=== PATIENT | female | born 2000 | race African-American/Black ===

== ENCOUNTER 2022-07-14 19:02 | Emergency (ER) | payer OTHER, SELFPAY ==
[2022-07-14 19:34] VITALS: BP 109/75; PULSE 95; RESP 16; TEMP 37.7; O2SAT 98; BMI 18.9
[2022-07-14 20:45] LABS: Strep A DNA Probe* NOT DETECTED (Not Detectd)
--- NOTE | 2022-07-14 20:49 | CRLHL7_ITS ---
For Patients: As a result of the Century Cures Act, medical imaging exams and procedure reports are released immediately into your electronic medical record. You may view this report before your referring provider. If you have questions, please contact your health care provider. INDICATION: Dizziness, headache.. TECHNIQUE: CT head without contrast. COMPARISON: None. FINDINGS: CSF spaces: Within normal limits for age. Incidentally noted cavum septum vergae. Brain parenchyma and extra-axial spaces: The ivy-white differentiation is normal. No sign of mass, hemorrhage, or midline shift. No extra-axial fluid collection. Skull base and calvarium: The visualized paranasal sinuses and mastoid air cells demonstrate no acute or significant findings. The visualized orbits are grossly unremarkable. No skull fractures. IMPRESSION: Unremarkable noncontrast head CT. Please note that all CT scans at this facility use dose modulation, iterative reconstruction, and/or weight-based dosing when appropriate to reduce radiation dose to as low as reasonably achievable. Dictated by Seng Carmona MD @ 07/14/2022 9:48:30 PM (Electronically Signed)
--- NOTE | 2022-07-14 20:50 | ED.GENADULT ---
HPI - General Adult General Time Seen by Provider: 20:50 Date Seen: 07/14/22 Chief complaint: Ear/Nose/Throat Problem Stated complaint: Dizziness, Balance issues Time Seen by Provider: 07/14/22 20:42 Source: patient, family and RN notes reviewed Mode of arrival: ambulatory Limitations: no limitations History of Present Illness HPI narrative: 22-year-old female who comes in today with dizziness, sore throat, headache, ear pain. Sore throat headache as well as ear pain and been going on for about 5 days, her dizziness started yesterday. Dizziness is room spinning, occurs mostly with movement although occasionally at rest. No accompanying nausea vomiting, no vision changes. She has a right occipital headache along with this. She has not taken anything for symptoms. Feels like the right ear is plugged. No numbness or tingling the arms or legs, no other neurologic symptoms. Related Data Previous Rx's Medication Instructions Recorded meclizine 25 mg tablet 25 mg PO QID PRN dizziness #20 tabs 07/14/22 Review of Systems Status of ROS: Reports: 10 or more systems reviewed and unremarkable except as noted in History and below Exam Narrative: Exam Narrative: General: Well-developed and well-nourished, no acute distress Head: Atraumatic and normocephalic Eyes: Pupils are equal reactive, extraocular motions intact, conjunctiva clear ENT: External nose and ears are normal, posterior pharynx without erythema or exudate, right tympanic membrane is retracted small amount of cerumen Neck: No midline cervical tenderness, full spontaneous range of motion the neck, trachea midline, no adenopathy Heart: Regular rate and rhythm no murmurs or thrills Lungs: Clear to auscultation bilaterally without wheezes or crackles Abdomen: Soft, nontender, nondistended with active bowel sounds Musculoskeletal: No tenderness, deformity, or edema Neurologic: Awake, alert, and oriented x3, no gross focal neurologic deficits, cranial nerves intact as tested Psych: Mood and affect are appropriate Skin: No rashes Const: Vital Signs, click to edit/add: Vital Signs - 24 hr 07/14/22 19:34 Temperature 99.8 F H Pulse Rate [Pulse Oximeter] 95 Respiratory Rate 16 Blood Pressure [Ri ght Upper Arm] 109/75 Pulse Oximetry 98 Oxygen Delivery Me thod Room Air Course Course Hospital Course: Patient seen and examined, prior records are reviewed. Patient presents with head pain, sore throat, right ear pain, and dizziness which sounds like vertigo. COVID influenza swabs are ordered. On exam, no focal neurologic deficits. Dizziness is elicited with turning the head to the right but not with eye movements. No neck pain or meningeal signs. Head CT is ordered due to right occipital headache and vertigo but likely this represents labyrinthitis or viral process. Meclizine ordered for symptom management. Reevaluation(s) Reevaluation #1: COVID, influenza, and strep test are all negative. CT scan of the head is negative for acute findings, radiology interpretation is pending. Patient will be discharged with meclizine to help with her dizziness, also be started on prednisone possible labyrinthitis. Time: 21:35 Time: 21:49 Vital Signs Vital signs: Initial Vital Signs Temperature 99.8 F H 07/14/22 19:34 Temperature Source Temporal Artery Scan 07/14/22 19:34 Pulse Rate 95 07/14/22 19:34 Pulse Rhythm 07/14/22 19:34 Respiratory Rate 16 07/14/22 19:34 Blood Pressure 109/75 07/14/22 19:34 Blood Pressure Mean 86 07/14/22 19:34 Pulse Oximetry 98 07/14/22 19:34 Oxygen Delivery Method 07/14/22 19:34 Vital Signs Temperature 99.8 F H 07/14/22 19:34 Pulse Rate 95 07/14/22 19:34 Respiratory Rate 16 07/14/22 19:34 Blood Pressure 109/75 07/14/22 19:34 Pulse Oximetry 98 07/14/22 19:34 Oxygen Delivery Method 07/14/22 19:34 Temperature 99.8 F H 07/14/22 19:34 Pulse Rate 95 07/14/22 19:34 Respiratory Rate 16 07/14/22 19:34 Blood Pressure 109/75 07/14/22 19:34 Pulse Oximetry 98 07/14/22 19:34 Oxygen Delivery Method 07/14/22 19:34 Medical Decision Making Medical Records Medical records reviewed: Yes I reviewed the patient's medical records Lab Data Lab results reviewed: Yes I reviewed the patient's lab results Labs: Lab Results 07/14/22 07/14/22 Range/Units 19:18 19:18 SARS-CoV-2 (PCR) Negative SARS-CoV-2 (Negative) Influenza Type A (PCR) Negative PCR FLU A (Negative) Influenza Type B (PCR) Negative PCR FLU B (Negative) Group A Strep DNA NOT DETECTED (Not Detectd) Imaging Data CT scan - head: Attestation: I have reviewed the pertinent imaging results. My impression: Negative head CT Radiologist's impression: IMPRESSION: Unremarkable noncontrast head CT. Discharge Plan Discharge Clinical Impression: Acute labyrinthitis Patient Disposition: Home, Self-Care Condition: Stable Instructions: Labyrinthitis (ED) Additional Instructions: Take Tylenol and ibuprofen as needed for head pain. Take meclizine as needed for dizziness. Take steroid as prescribed. Follow-up with primary care in 5-7 days. Activity Level: No Restrictions and Activity as Tolerated Prescriptions: New meclizine 25 mg tablet 25 mg PO QID PRN (Reason: dizziness) Qty: 20 0RF Stand Alone Forms: [email or web address] Info Instructions
[2022-07-14] MEDS: MECLIZINE HCL 25 MG TABLET PO (20:57)
[2022-07-14 20:58] LABS: PCR FLU A Negative PCR FLU A (Negative); PCR FLU B Negative PCR FLU B (Negative)
[2022-07-14 20:59] LABS: SARS PCR* Negative SARS-CoV-2 (Negative)
== END 2022-07-14 22:18 | disposition home or self-care (01) ==
PROVIDERS: Emergency Provider Family Medicine
DX: H83.09 Labyrinthitis, unspecified ear (principal)
CPT/HCPCS: 70450; 87631; 87651; 99284; A9270

== ENCOUNTER 2023-05-04 07:18 | Emergency (ER) | payer OTHER, SELFPAY ==
[2023-05-04 07:26] VITALS: BP 96/52; PULSE 61; RESP 16; TEMP 35.9; O2SAT 100; BMI 18.9
--- NOTE | 2023-05-04 08:10 | ED.SKABFB ---
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 She has had no fevers no chills no night sweats. No significant swelling of the ear. No neurologic symptoms she states the pain is moderate and localized to the posterior aspect of the piercing. Related Data Home Medications Medication Instructions Recorded Confirmed No Known Home Medications 05/04/23 05/04/23 Allergies Allergy/AdvReac Type Severity Reaction Status Date / Time No Known Drug Allergies Allergy Verified 05/04/23 07:25 Review of Systems Status of ROS: Reports: 10 or more systems reviewed and unremarkable except as noted in History and below [facility] Social History Smoking Status: Never smoker Exam Narrative: Exam Narrative: EXAM GENERAL: Patient appears comfortable and well. EYES: No scleral icterus. ENT: Tympanic membranes and oropharynx normal. External ear on the left shows mild induration of the piercing on the superior aspect. No other significant findings minimal drainage. THYROID: no thyroid nodules or thyromegaly. LYMPH: No supraclavicular or cervical lymphadenopathy. SKIN: Visible skin seen during exam normal or with benign process only. EXT: No dependent lower extremity pedal edema. HEART: Regular rate and rhythm with no murmurs, rubs, or gallops. LUNGS: Clear to auscultation bilaterally with no crackles or wheezes. ABD: Soft, non tender, non distended. PSYCH: Good eye contact, speech is not pressured. Const: Vital Signs, click to edit/add: Vital Signs - 24 hr 05/04/23 07:26 Temperature 96.7 F L Pulse Rate [Pulse Oximeter] 61 Respiratory Rate 16 Blood Pressure [Le ft Upper Arm] 96/52 L Pulse Oximetry 100 Oxygen Delivery Me thod Room Air Course Course ED Course: Patient seen and examined. Vital Signs Vital signs: Initial Vital Signs Temperature 96.7 F L 05/04/23 07:26 Temperature Source Temporal Artery Scan 05/04/23 07:26 Pulse Rate 61 05/04/23 07:26 Pulse Rhythm Regular 05/04/23 07:26 Pulse Strength 3+ Normal 05/04/23 07:26 Respiratory Rate 16 05/04/23 07:26 Blood Pressure 96/52 L 05/04/23 07:26 Blood Pressure Mean 66 L 05/04/23 07:26 Blood Pressure Position Sitting 05/04/23 07:26 Pulse Oximetry 100 05/04/23 07:26 Oxygen Delivery Method Room Air 05/04/23 07:26 Vital Signs Temperature 96.7 F L 05/04/23 07:26 Pulse Rate 61 05/04/23 07:26 Respiratory Rate 16 05/04/23 07:26 Blood Pressure 96/52 L 05/04/23 07:26 Pulse Oximetry 100 05/04/23 07:26 Oxygen Delivery Method Room Air 05/04/23 07:26 Temperature 96.7 F L 05/04/23 07:26 Pulse Rate 61 05/04/23 07:26 Respiratory Rate 16 05/04/23 07:26 Blood Pressure 96/52 L 05/04/23 07:26 Pulse Oximetry 100 05/04/23 07:26 Oxygen Delivery Method Room Air 05/04/23 07:26 MDM - Skin/Abscess/Foreign Bdy MDM Narrative Medical decision making narrative: Patient is a 22-year-old woman who presents with mild infection of a upper ear piercing. She has no signs of sepsis. I was able to turn the earring without any difficulty and only minimal discharge. At this time I do not think we need to take the hearing up a do think we need to treated with some antibiotics. Her tetanus shot is up-to-date. She will continue symptomatic wound care. I did place her on Keflex for the next week. She will follow-up on a p.r.n. basis. Discharge Plan Discharge Clinical Impression: Abscess of skin or subcutaneous tissue Patient Disposition: Home, Self-Care Condition: Stable Instructions: Abscess (ED) Additional Instructions: Turn the piercing 4 times per day Continue current topical treatment. Keflex as directed Follow-up as discussed. Activity Level: No Restrictions Discharge Diet: Regular Prescriptions: No Action No Known Home Medications Follow Up/Referrals: Provider,Not a Local [Primary Care Provider] - Stand Alone Forms: [employer] Info Instructions
== END 2023-05-04 08:26 | disposition home or self-care (01) ==
LOC: ED 08:23
PROVIDERS: Emergency Provider Internal Medicine
DX: T81.41XA Infection following a procedure, superficial incisional surgical site, initial encounter (principal)
CPT/HCPCS: 99283

== ENCOUNTER 2023-06-26 10:50 | Emergency (ER) | payer MEDICAID, SELFPAY ==
[2023-06-26 10:56] VITALS: BP 106/72; PULSE 75; RESP 16; TEMP 37.1; O2SAT 100; BMI 18.9
--- NOTE | 2023-06-26 13:29 | ED.GENADULT ---
HPI - General Adult General Chief complaint: Arrhythmia/Palpitations Stated complaint: Tightness in chest Time Seen by Provider: 06/26/23 12:47 History of Present Illness HPI narrative: Tightness in chest and feels like heart beats really fast out of no where for like 10 minutes and then comes back . Has been ongoing since . Feels some nausea with it too 23-year-old young woman presenting to the emergency department with concern of rapid heart beats. Might last for about 10 minutes and then resolve spontaneously and then occur later. Has been occurring on and off at rest over the last 4 days. Does have some associated nausea. At this time does have a sensation of pressure but not feeling does heartbeats. Sounds like father has a history of pacemaker. Ravindra reports a history of anemia of unspecified etiology. She does not describe peripheral sensory changes or cramping. Maybe some subtle shortness of breath. No cough or cold symptoms. No rashes. No noted exercise intolerance although does not really exercise. On affected by position changes. Related Data Home Medications Medication Instructions Recorded Confirmed No Known Home Medications 05/04/23 05/04/23 Allergies Allergy/AdvReac Type Severity Reaction Status Date / Time No Known Drug Allergies Allergy Verified 05/04/23 07:25 Review of Systems Status of ROS: Reports: 6 or more systems reviewed and unremarkable except as noted in History and below PFSH [facility] Social History Smoking Status: Never smoker Do you use any of these nicotine containing products: None Second hand tobacco smoke exposure: No How often do you have a drink containing alcohol: never How often do you have six or more drinks on one occasion: Never AUDIT-C Alcohol total score: 0 Non-prescribed substance use: denies use service: No Exam Narrative: Exam Narrative: Slim. Calm/NAD. Well nourished. Fully alert. Easily conversant. Carefully casually groomed. Breathing easily. Lungs are clear. Neck is supple without supraclavicular crepitus. Oropharynx is moist. No pain to palpation over the upper chest. Heart in regular rate and rhythm without murmur rub or gallop. Extremities are well perfused without edema. Moving all extremities without difficulty. Cranial nerves 2-12 intact. Const: Vital Signs, click to edit/add: Vital Signs - 24 hr 06/26/23 15:05 Pulse Rate [Left P ulse Oximeter] 75 Respiratory Rate 18 Blood Pressure [Le ft Upper Arm] 115/56 L Pulse Oximetry 99 Oxygen Delivery Me thod Room Air Documenting provider has reviewed patient's vital signs: yes Course Vital Signs Vital signs: Initial Vital Signs Temperature 98.7 F 06/26/23 10:56 Temperature Source Temporal Artery Scan 06/26/23 10:56 Pulse Rate 75 06/26/23 10:56 Pulse Rhythm Regular 06/26/23 10:56 Pulse Strength 3+ Normal 06/26/23 10:56 Respiratory Rate 16 06/26/23 10:56 Blood Pressure 106/72 06/26/23 10:56 Blood Pressure Mean 83 06/26/23 10:56 Blood Pressure Position Sitting 06/26/23 10:56 Pulse Oximetry 100 06/26/23 10:56 Oxygen Delivery Method Room Air 06/26/23 10:56 Vital Signs Temperature 98.7 F 06/26/23 10:56 Pulse Rate 75 06/26/23 10:56 Respiratory Rate 16 06/26/23 10:56 Blood Pressure 106/72 06/26/23 10:56 Pulse Oximetry 100 06/26/23 10:56 Oxygen Delivery Method Room Air 06/26/23 10:56 Temperature 98.7 F 06/26/23 10:56 Pulse Rate 75 06/26/23 15:05 Respiratory Rate 18 06/26/23 15:05 Blood Pressure 115/56 L 06/26/23 15:05 Pulse Oximetry 99 06/26/23 15:05 Oxygen Delivery Method Room Air 06/26/23 15:05 Medical Decision Making MDM Narrative Medical decision making narrative: Seems to be describing some potential arrhythmia. Will need to be monitored on cardiac cath technologist here in the ER. Would also evaluate for evidence of pulmonary embolus. Could be exacerbations of anxiety. Unlikely infectious etiology or pneumonia. Possible but doubtful aneurysm. History of anemia could be predisposing to tachycardia. This does not however appear to be a persistent tachycardia. Unlikely ischemic injury to heart on less prolonged and marked tachycardia. Chest x-ray for assessment more of cardiac silhouette than looking for pneumonia or pneumothorax. Does not appear to be pleuritic. Possible pericarditis contributing. EKG reviewed by me in normal sinus as below. Chemistries checked and TSH. Not particularly anemic. D-dimer normal. ProBNP below detectable. Troponin normal. No laboratory or EKG evidence of pericarditis. Chest x-ray reviewed by me with normal cardiac silhouette. No pneumothorax. No infiltrate. Monitored on cardiac cath technologist without identifiable arrhythmia. 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 Will place a Holter monitor for further analysis. See patient discharge plan Lab Data Lab results reviewed: Yes I reviewed the patient's lab results Labs: Lab Results 06/26/23 Range/Units 13:55 WBC 7.83 (4.50-11.00) K/uL RBC 3.94 L (4.00-5.20) m/uL Hgb 11.6 L (12.0-16.0) gm/dL Hct 36.5 (33.0-51.0) % MCV 93 (80-100) fL MCH 29 (26-34) pg MCHC 32 (32-36) gm/dL RDW Coeff of Keith 13.3 (11.5-15.5) % Plt Count 219 (140-440) K/uL Neut % (Auto) 59.0 (42.0-72.0) % Lymph % (Auto) 36.7 (20-44) % [place] % (Auto) 3.6 (0.0-11.0) % Eos % (Auto) 0.4 (0.0-7.0) % Baso % (Auto) 0.3 (0.0-3.0) % Neut # (Auto) 4.63 (1.7-7.0) K/uL Lymph # (Auto) 2.87 (0.90-2.90) K/uL [place] # (Auto) 0.30 (0.00-0.90) K/UL Eos # (Auto) 0.03 (0.00-0.50) K/uL Baso # (Auto) 0.02 (0.00-0.30) K/uL Abs Immat Gran (auto) 0.00 (0.00-0.30) K/uL Imm/Tot Granulo (auto) 0.0 % D-Dimer Quant (PE/DVT) 0.27 (0.00-0.50) ug/ml Sodium 141 (135-149) mmol/L Potassium 3.7 (3.6-5.1) mmol/L Chloride 105 (96-114) mmol/L Carbon Dioxide 24 (20-32) mmol/L Anion Gap 12 (7-15) mEq/L BUN 13 (5-24) mg/dL Creatinine 0.6 (0.5-1.5) mg/dL Estimated Creat Clear 116.83 Estimated GFR 131 ml/min Glucose 98 (60-115) mg/dL Calcium 9.2 (8.4-10.6) mg/dL Magnesium 2.6 (1.5-2.6) mg/dL Troponin I < 0.01 L (0.01-0.04) ng/mL NT-Pro-B Natriuret Pep < 20 pg/mL TSH 0.805 (0.270-4.20) uIU/mL ECG Data Attestation: I personally reviewed and interpreted this ECG as follows: (Normal sinus rhythm rate of 81. No delta wave.) Discharge Plan Discharge Clinical Impression: Palpitations Patient Disposition: Home w/ Parent or Adult Condition: Improved Additional Instructions: It sounds as though you are experiencing palpitations of unclear etiology. Please return this heart monitoring as indicated and would follow up for results in 1-2 weeks with your primary care provider in [place]. Your thyroid test is pending at this time; I will call you if it is abnormal. Prescriptions: No Action No Known Home Medications Follow Up/Referrals: Provider,Not a Local [Primary Care Provider] - Stand Alone Forms: [employer] Info Instructions
[2023-06-26 14:03] LABS: Basophils Absolute Auto 0.02 K/uL (0.00-0.30); Basophils Percent Auto 0.3 % (0.0-3.0); Eosinophils Absolute Auto 0.03 K/uL (0.00-0.50); Eosinophils Percent Auto 0.4 % (0.0-7.0); Hematocrit 36.5 % (33.0-51.0); Hemoglobin* 11.6 gm/dL (12.0-16.0); Lymphocytes Absolute Auto 2.87 K/uL (0.90-2.90); Lymphocytes Percent Auto 36.7 % (20-44); Mean Corpuscular HGB Conc 32 gm/dL (32-36); Mean Corpuscular Hemoglobin 29 pg (26-34); Mean Corpuscular Volume 93 fL (80-100); Monocytes Percent Auto 3.6 % (0.0-11.0); Neutrophils Absolute Auto 4.63 K/uL (1.7-7.0); Platelet Count* 219 K/uL (140-440); RDW Coefficient of Variation % 13.3 % (11.5-15.5); Red Blood Count 3.94 m/uL (4.00-5.20); White Blood Count* 7.83 K/uL (4.50-11.00)
[2023-06-26 14:20] LABS: Chloride* 105 mmol/L (96-114); Potassium* 3.7 mmol/L (3.6-5.1); Sodium* 141 mmol/L (135-149)
[2023-06-26 14:22] LABS: Creatinine* 0.6 mg/dL (0.5-1.5); D Dimer Quantitative* 0.27 ug/ml (0.00-0.50); Est. Creatinine Clearance* 116.83; Estimated Glomerular Filt Rate 131 ml/min
[2023-06-26 14:23] LABS: Anion Gap 12 mEq/L (7-15); Blood Urea Nitrogen* 13 mg/dL (5-24); Carbon Dioxide* 24 mmol/L (20-32); Glucose* 98 mg/dL (60-115)
[2023-06-26 14:24] LABS: Calcium* 9.2 mg/dL (8.4-10.6); Magnesium* 2.6 mg/dL (1.5-2.6)
[2023-06-26 14:41] LABS: NT Pro B Type NatriureticPept* < 20 pg/mL; Slide Review Reflex No; Troponin I* < 0.01 ng/mL (0.01-0.04)
[2023-06-26 15:05] VITALS: BP 115/56; PULSE 75; RESP 18; O2SAT 99
--- NOTE | 2023-06-26 15:12 | CRLHL7_ITS ---
For Patients: As a result of the Cures Act, medical imaging exams and procedure reports are released immediately into your electronic medical record. You may view this report before your referring provider. If you have questions, please contact your health care provider. INDICATION: .CHEST PRESSURE TECHNIQUE: Chest 1 views. COMPARISON: None. FINDINGS: Lungs: Normal lung volume. No consolidation. The tracheobronchial tree and hilar structures are unremarkable. Pleura: No pleural effusion or pneumothorax. Heart and Mediastinum: Normal heart size. The great vessels of the thorax are unremarkable. Bones: No acute displaced osseous process. IMPRESSION: No consolidation. Dictated by Eliot Frederick MD @ 06/26/2023 4:28:37 PM (Electronically Signed)
[2023-06-26 16:03] LABS: Thyroid Stimulating Hormone* 0.805 uIU/mL (0.270-4.20)
--- NOTE | 2023-06-26 16:05 | ED.NURSE ---
Went over discharge with pt, pt waiting in the lobby for radiology to put on holter monitor.
== END 2023-06-26 16:20 | disposition home or self-care (01) ==
PROVIDERS: Emergency Provider Family Medicine
DX: R00.2 Palpitations (principal)
CPT/HCPCS: 36415; 71045; 80048; 83735; 83880; 84443; 84484; 85025; 85379; 93225; 93226; 99284; 99285

== ENCOUNTER 2024-04-23 09:46 | Emergency (ER) | payer OTHER, SELFPAY ==
[2024-04-23 09:55] VITALS: BP 106/68; PULSE 80; RESP 16; TEMP 35.9; O2SAT 98; BMI 18.3
--- NOTE | 2024-04-23 10:20 | ED.GENADULT ---
HPI - General Adult General Chief complaint: Urogenital Problems, Female Stated complaint: UTI symptoms Time Seen by Provider: 04/23/24 09:54 History of Present Illness HPI narrative: reports that she developed signs and symptoms of a uti. explained as a child she did have utis' frequently. had dysuria, urgency, frequency and noticed blood on the toilet paper when she wiped this am. 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 denies fever. does have some nausea. has mild cold symptoms. 23-year-old woman presenting to the emergency department with concern of potential urinary tract infection. Appears to have developed symptoms consistent over the last 12 hours. She has lot of sense of pressure low pelvis and with urinating and then what sounds like cramps following void. She noticed some blood on wiping this morning. Does not have a fever. Maybe some mild nausea. Apparent history of urinary tract infections as a child. No flank pain. No renal stones. Related Data Home Medications ?Medication ?Instructions ?Recorded ?Confirmed No Known Home Medications 05/04/23 05/04/23 Allergies Allergy/AdvReac Type Severity Reaction Status Date / Time No Known Drug Allergies Allergy Verified 05/04/23 07:25 Review of Systems Status of ROS: Reports: 6 or more systems reviewed and unremarkable except as noted in History and below PFSH PFS Social History Smoking Status: Never smoker Do you use any of these nicotine containing products: None Second hand tobacco smoke exposure: No How often do you have a drink containing alcohol: never How often do you have six or more drinks on one occasion: Never AUDIT-C Alcohol total score: 0 Non-prescribed substance use: denies use service: No Exam Narrative: Exam Narrative: Pleasant. NAD other than shivering in a cold exam room I think. Breathing easily. Heart is in regular rate and rhythm. Abdomen is flat soft and uncomfortable to palpation in the suprapubic area. No masses appreciated. She does not have any flank pain. Const: Vital Signs, click to edit/add: Vital Signs - 24 hr 04/23/24 09:55 Temperature 96.6 F L Pulse Rate [Pulse Oximeter] 80 Respiratory Rate 16 Blood Pressure [Ri ght Upper Arm] 106/68 Pulse Oximetry 98 Oxygen Delivery Me thod Room Air Documenting provider has reviewed patient's vital signs: yes Course Vital Signs Vital signs: Initial Vital Signs Temperature 96.6 F L 04/23/24 09:55 Temperature Source Temporal Artery Scan 04/23/24 09:55 Pulse Rate 80 04/23/24 09:55 Pulse Rhythm Regular 04/23/24 09:55 Respiratory Rate 16 04/23/24 09:55 Blood Pressure 106/68 04/23/24 09:55 Blood Pressure Mean 80 04/23/24 09:55 Blood Pressure Position Sitting 04/23/24 09:55 Pulse Oximetry 98 04/23/24 09:55 Oxygen Delivery Method Room Air 04/23/24 09:55 Vital Signs Temperature 96.6 F L 04/23/24 09:55 Pulse Rate 80 04/23/24 09:55 Respiratory Rate 16 04/23/24 09:55 Blood Pressure 106/68 04/23/24 09:55 Pulse Oximetry 98 04/23/24 09:55 Oxygen Delivery Method Room Air 04/23/24 09:55 Temperature 96.6 F L 04/23/24 09:55 Pulse Rate 80 04/23/24 09:55 Respiratory Rate 16 04/23/24 09:55 Blood Pressure 106/68 04/23/24 09:55 Pulse Oximetry 98 04/23/24 09:55 Oxygen Delivery Method Room Air 04/23/24 09:55 Medical Decision Making MDM Narrative Medical decision making narrative: Cystitis/urinary tract infection I think is reasonable explanation at this point for symptoms as presented. Vitals otherwise look well. Does not have clear degree of discomfort or vital indication of pyelonephritis. I suppose nephrolithiasis remains in differential as well as does STI. Urinalysis clearly positive. Initiating treatment with cephalexin and phenazopyridine See patient discharge plan for further discussion Medical Records Medical records reviewed: Yes I reviewed the patient's medical records Lab Data Lab results reviewed: Yes I reviewed the patient's lab results Labs: Lab Results 04/23/24 Range/Units 10:45 Urine Color Yellow (Yellow) Urine Appearance Cloudy A (Clear) Urine pH 7.0 (5.0-8.5) Ur Specific [place] 1.010 (1.000-1.030) Urine Protein Trace A (Negative) Urine Glucose (UA) Negative (Negative) Urine Ketones Negative (Negative) Urine Blood 3+ A (Negative) Urine Nitrite Negative (Negative) Urine Bilirubin Negative (Negative) Urine Urobilinogen 0.2 (0.2-1.0) Ur Leukocyte Esterase 2+ A (Negative) Urine RBC 10-25 A (0-2) Urine WBC >100 A (0-5) Ur Squamous Epith Cells None (None-Few) Urine Bacteria None (None) Discharge Plan Discharge Clinical Impression: Cystitis Patient Disposition: Home, Self-Care Condition: Stable Additional Instructions: Generally stay well-hydrated with water (for the moment avoid sugared/sweetened drinks, juice) Recommend voiding after intimate encounters. Your antibiotic will be cephalexin from the [facility]. Also phenazopyridine for burning (can make urine and tears, for example, orange) And Zofran for nausea. A urine culture will be pending here. We will call you if it appears that you might need to change antibiotics. Of course feel free to return if you are having marked increase in pain, repeated vomiting, fever. Prescriptions: No Action No Known Home Medications Follow Up/Referrals: Provider,Not a Local [Primary Care Provider] - Stand Alone Forms: [employer] Info Instructions
--- OUTSIDE RECORDS SUMMARY | 2024-04-23 10:43 | XMS_ITS | Encounter Summary ---
Author Organization [facility] Address [address] [address] Care Team Providers Care Mine Wedge Sawyer Name Role Phone Mirtha Patel MD Primary Care Provider [phone] Encounter Details Date Type Department Care Team (Late st Contact Info) Description 2002 [facility] [address] [place] [address] Jhoana Conn MD Children Social History Tobacco Use Types Packs/Day Years Used Date Smoking Tobacco: Never Smokeless Tobacco: Never Comments:smoke free home Alcohol Use Standard Drinks/Week Comments No 0 (1 standard drink = 0.6 oz pur e alcohol) Sex and Gender Information Value Date Recorded Sex Assigned at Not on file Gender Identity Not on file Sexual Orientation Not on file documented as of this encounter Progress Notes * Jhoana Conn - 2000 12:00 AM CHIP TUNER TUNER documented in this encounter Plan of Treatment Not on file documented as of this encounter Visit Diagnoses Diagnosis Unspecified and jaundice Disorder of stomach function and feeding problems in documented in this encounter Care Teams Mine Wedge Sawyer Relationship Specialty [place] [address] [place] [address] PCP - General Pediatric Medicine 01/21/16 documented as of this encounter
--- OUTSIDE RECORDS SUMMARY | 2024-04-23 10:43 | XMS_ITS | Encounter Summary ---
Author Organization [facility] Address [address], [place] [address] Care Team Providers Care Movement Education Specialist Name Role Phone Mirtha Patel MD Primary Care Provider [phone] Encounter Details Date Type Department Care Team (Late st Contact Info) Description 2002 [facility] [address] [place] [address] Jhoana Conn MD / JAUND NOS; NWBRN FEEDING PROBLEMS Social History Tobacco Use Types Packs/Day Years Used Date Smoking Tobacco: Never Smokeless Tobacco: Never Comments:smoke free home Alcohol Use Standard Drinks/Week Comments No 0 (1 standard drink = 0.6 oz pur e alcohol) Sex and Gender Information Value Date Recorded Sex Assigned at Not on file Gender Identity Not on file Sexual Orientation Not on file documented as of this encounter Plan of Treatment Not on file documented as of this encounter Visit Diagnoses Diagnosis Unspecified and jaundice Disorder of stomach function and feeding problems in documented in this encounter Care Teams Movement Education Specialist Relationship Specialty [place] [address] [place] [address] PCP - General Pediatric Medicine 01/21/16 documented as of this encounter
--- OUTSIDE RECORDS SUMMARY | 2024-04-23 10:43 | XMS_ITS | Encounter Summary ---
Author Organization [facility] Address [address] [place] [address] Care Team Providers Care Creative Engagement Director Name Role Phone Mirtha Patel MD Primary Care Provider Encounter Details Date Type Department Care Team (Late st Contact Info) Description 11/25/2011 Emergency Room External to [facility], Provider HEADACHE Social History Tobacco Use Types Packs/Day Years Used Date Smoking Tobacco: Never Smokeless Tobacco: Never Comments:smoke free home Alcohol Use Standard Drinks/Week Comments Not Asked 0 (1 standard drink = 0.6 oz pur e alcohol) Sex and Gender Information Value Date Recorded Sex Assigned at Not on file Gender Identity Not on file Sexual Orientation Not on file documented as of this encounter Progress Notes * [facility], Provider - 11/25/2011 12:00 AM CDT documented in this encounter Plan of Treatment Not on file documented as of this encounter Visit Diagnoses Not on filedocumented in this encounter Care Teams Creative Engagement Director Relationship Specialty [place] [address] [place] [address] PCP - General Pediatric Medicine 01/21/16 documented as of this encounter
--- OUTSIDE RECORDS SUMMARY | 2024-04-23 10:43 | XMS_ITS | Encounter Summary ---
Author Organization [facility] Address [address] [place] [address] Care Team Providers Care Hydraulic Rubbish Compactor Mechanic Name Role Phone Mirtha Patel MD Primary Care Provider [phone] Encounter Details Date Type Department Care Team (Late st Contact Info) Description 05/02/2013 Emergency Room External to [facility], Provider SORE THROAT Social History Tobacco Use Types Packs/Day Years [...] as of this encounter Progress Notes * [facility], Provider - 05/02/2013 12:00 AM CDT documented in this encounter Plan of Treatment Not on file documented as of this encounter Visit Diagnoses Not on filedocumented in this encounter Care Teams Hydraulic Rubbish Compactor Mechanic Relationship Specialty [place] [address] [place] [address] PCP - General Pediatric Medicine 01/21/16 documented as of this encounter
--- OUTSIDE RECORDS SUMMARY | 2024-04-23 10:43 | XMS_ITS | Encounter Summary ---
Author Organization [facility] Address [address] [facility] [place] [address] Care Team Providers Care Pottery Machine Operator Name Role Phone Mirtha Patel MD Primary Care Provider [phone] Encounter Details Date Type Department Care Team (Late st Contact Info) Description [address] [place] [address] Favio Nava MD SINGL BORN IN HOSP-NO C/DELIVERY Social History Tobacco Use Types Packs/Day Years [...] as of this encounter Visit Diagnoses Diagnosis Single liveborn, born in hospital, delivered without mention of delivery documented in this encounter Care Teams Pottery Machine Operator Relationship Specialty [place] [address] [place] [address] PCP - General Pediatric Medicine 01/21/16 documented as of this encounter
--- OUTSIDE RECORDS SUMMARY | 2024-04-23 10:43 | XMS_ITS | Encounter Summary ---
Author Organization [facility] Address [address], [place] [address] Care Team Providers Care Life Insurance Actuary Name Role Phone Mirtha Patel MD Primary Care Provider [phone] Reason for Visit * Reason Comments MEDICATION, NOS Encounter Details Date Type Department Care Team (Late st Contact Info) Description 04/02/2024 Telephone [facility] Occupational Health Physician [address] [facility] [place] [address] Gillian Dutton PA-C [address] [place] [address] MEDICATION, NOS Social History Tobacco Use Types Packs/Day Years Used Date Smoking Tobacco: Never Smokeless Tobacco: Never Comments:smoke free home Alcohol Use Standard Drinks/Week Comments No 0 (1 standard drink = 0.6 oz pur e alcohol) PHQ-2 Answer Date Recorded PHQ-2 Score 2 11/03/2023 Financial Resource Strain Answer Date R ecorded Is it hard for you to pay fo r the very basics like food, housing, medical care or heating? No 11/03/2023 Food Insecurity Answer Date Recorded Does your food run out before you have the money to buy more? No 11/03/2023 Transportation Needs Answer Date Record ed Does a lack of transportatio n keep you from your medical appointments or from getting your medications? No 03/29/2 024 Sex and Gender Information Value Date Recorded Sex Assigned at Not on file Gender Identity Not on file Sexual Orientation Not on file documented as of this encounter Nursing Notes * Sarah Gilmore - 04/02/2024 11:01 AM CDT Informed patient refill was sent to requested pharmacy and advised no more refills will be sent prior to their 04/17/24 VV with provider. * Gillian Dutton PA-C - 04/02/2024 10:35 AM CDT Script sent Gillian Cosby PA-C 04/02/2024, 10:35 AM * Gillian Hazel - 04/02/2024 9:38 AM CDT Clinician: Review and advise Patient/skin care therapist request: New medication Specific Request: Patient is calling for medication adderall, patient is leaving for school today/tomorrow patient states Drug screen was complete. Please review if able to prescribe medication Call patient with update. documented in this encounter Plan of Treatment Not on file documented as of this encounter Visit Diagnoses Diagnosis ADHD, predominantly inattentive type (HRC)- Primary Attention deficit disorder with hyperactivity documented in this encounter Care Teams Life Insurance Actuary Relationship Specialty [place] [address] [place] [address] PCP - General Pediatric Medicine 01/21/16 documented as of this encounter
--- OUTSIDE RECORDS SUMMARY | 2024-04-23 10:43 | XMS_ITS | Encounter Summary ---
Author Organization [facility] Address [address], [place] [address] Care Team Providers Care Electrical Equipment Assembler Name Role Phone Mirtha Patel MD Primary Care Provider [phone] Encounter Details Date Type Department Care Team (Late st Contact Info) Description 12/11/2017 Correspondence None No Primary/Referring, Phy MEDICAL EQUIPMENT PROOF OF DELIVERY Social History Tobacco Use Types Packs/Day Years [...] on filedocumented in this encounter Care Teams Electrical Equipment Assembler Relationship Specialty [place] [address] [place] [address] PCP - General Pediatric Medicine 01/21/16 documented as of this encounter
--- OUTSIDE RECORDS SUMMARY | 2024-04-23 10:43 | XMS_ITS | Clinical Summary ---
Author Organization [facility] Address [address] [place] [address] Care Team Providers Care Cable Maker Name Role Phone Mirtha Patel MD Primary Care Provider Source Comments You are receiving this document as you are listed as the primary care provider,follow-up provider, or the patient has been referred to you for consultation.This is in compliance with the Medicare and[facility] EHR Incentive Program,which states Providers who transition their patient to another setting of careor provider of care or refers their patient to another provider of care shouldprovide summary care record for each transition of care or referral. [employer] Allergies No known active allergies Medications Medication Sig Dispensed Refills Start Date End Date Status amphetamine-dextroamp hetamine XR (ADDERALL XR) 10 MG 24 hour release capsuleIndications:AD HD, predominantly inattentive type (HRC) Take 1 Capsule (10 mg) by mouth daily. 30 Capsule 04/02/2024 Active amphetamine-dextroamp hetamine (ADDERALL) 5 MG tabletIndications:ADH D, predominantly inattentive type (HRC) Take 1 Tablet (5 mg) by mouth daily. 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 2.5 cm by 1.5 cm on abdomen 1 cm in diameter on L leg 1' by 1 on R flank area 2 cm by 1 cm on upper back No axillar flecking. Since she has less than 6 cafe au lait spots, defer genetic referral Resolved Problems Problem Noted Date Diagnosed Date Resolved Date Proteinuria 01/21/2016 12/28/2016 Acute constipation 09/10/2015 0 Encounters Date Type Department Care Team Description 04/17/2024 3:00 PM CDT Telemedicine [facility] [address] [address] Gillian Dutton PA-C ADHD, predominantly inattentive type (HRC) (Primary Dx) 04/02/2024 Telephone [facility] Behavioral Science Chair [address] [place] [address] Gillian Dutton PA-C MEDICATION, NOS 04/01/2024 1:40 PM CDT Lab Visit [facility] - Laboratory [address] [place] [address] ADHD, predominantly inattentive type (HRC) 04/01/2024 12:20 PM CDT Office Visit [address] [address] Gillian Dutton PA-C ADHD, predominantly inattentive type (HRC) (Primary Dx); Encounter for immunization from Last 3 Months Immunizations Name Administration Dates Next Due 4vHPV (Gardasil) 10/04/2013,07/23/2013 9vHPV (Gardasil 9) 03/20/2017 DTaP 10/09/2007, 4,2002,2002,2002 Flu Vac (3+ yrs) 06/02/2006 Flu Vac Preserv Free (6-35 mo) 08/18/2004,2003,07/14/2003 HepA Ped/Adol (1-18 yrs) 11/02/2011,05/02/2011 HepB Ped/Adol (0-18 yrs) 2002 Hib/HBV 07/14/2003,2002,2002 IPV (Polio) 10/09/2007, 3,2002,2002 Influenza IIV4 (Quadrivalent ) 0.5mL (46278) 08/15/2020 Influenza LAIV (Nasal, 2-49 yrs) 05/09/2014,05/07 Influenza LAIV3 2-49 years (Flumist) ,04/02/2010,04/06/2009,2007 Influenza Vaccine (3+years) ([facility]) 05/31/2007 Influenza Vaccine, Nasal ([facility]) 05/24/2012 MCV4 (Menactra) 11/02/2011 MCV4 Menveo 2m.+ (two vial) 03/13/2019, 7 MMR 10/09/2007,07/14/2003 Pfizer Monovalent 12+ Purple Top 07/28/2021,10/05,09/29/2020 Pneumococcal 7, PED 07/14/2003, 3,2002,2002 TB Skin Test (PPD) 11/22/2005 Tdap 04/01/2024,09/20/2012 Typhoid (Typhim Vi, IM) 01/24/2022,11/02/2011 Varicella 10/09/2007,10/09/2003 YF (Yellow Fever) 11/02/2011 Family History Medical History Relation Name Comments Hyperlipidemia Father Relation Name Status Comments Father Alive Mother Alive Social History Tobacco Use Types Packs/Day Years [...] appointments or from getting your medications? No 024 Sex and Gender Information Value Date Recorded Sex Assigned at Not on file Gender Identity Not on file Sexual Orientation Not on file Last Filed Vital Signs Vital Sign Reading Time Taken Comments Blood Pressure 95/60 04/01/2024 12:15 PM CDT Pulse 76 04/01/2024 12:15 PM CDT Temperature 37 ??C (98.6 ??F) 11/07/2022 2:43 PM CDT Respiratory Rate 16 11/07/2022 2:43 PM CDT Oxygen Saturation 100% 11/07/2022 2:43 PM CDT Inhaled Oxygen Concentration - - Weight 49.5 kg (109 lb 0.6 oz) 04/01/2024 12:15 PM CDT Height 165.3 cm (5' 5.08) 04/01/2024 12:15 PM C DT Body Mass Index 18.1 04/01/2024 12:15 PM CDT Plan of Treatment Health Maintenance Due Date Last Done Comments Cervical Cancer Screening Due 2002 Hep C Screening (Preventive Services) 2002 MTM Covered 2002 Chlamydia 03/13/2020 03/13/2019 (Completed) Adult Preventive Visit 2020 , 03/13/2019, 03/20/2017, Additional history exists COVID-19 Vaccine ( season) 2024 07/28/2021, 10/20/2020, 09/29/2020 Influenza (#1) 2024 08/15/2020, 100 10/2013, 05/23/2013, Additional history exists DTaP/Tdap/Td (8 - Tdap) 04/01/2034 04/01/20 24, 09/20/2012, 10/09/2007, Additional history exists Zoster/Shingles (1 of 2) 2052 HepB Completed 07/14/2003, 12/06, 2002, Additional history exists Hib Completed 07/14/2003, 10/05, 2002 Pneumococcal Aged Out 07/14/2003, 04/2003, 2002, Additional history exists No longer eligible based on patient's age to complete this topic IPV (Polio) Completed 10/09/2007, 12/06, 2002, Additional history exists Varicella Completed 10/09/2007, 10/09/2003 HepA Completed 11/02/2011, 05/02/2011 HPV Vaccine Completed 03/20/2017, 09/08, 07/23/2013 HIV Screening (Preventive Services) Completed 03/13/2019 (Completed) MCV4 Completed 03/13/2019, 05/09, 11/02/2011 Procedures Procedure Name Priority Date/Time Associated Diagnosis Comments THC (MARIJUANA) METAB CONFIRM, URINE Routine 04/01/2024 12:48 PM CDT ADHD, predominantly inattentive type (HRC) RAPID DRUG PANEL, URINE (WITH CONFIRMATION) Routine 04/01/2024 12:48 PM CDT ADHD, predominantly inattentive type (HRC) from Last 3 Months Results * (ABNORMAL) THC (Marijuana) Metab Confirm, Urine (04/01/2024 12:48 PM CDT) Marijuana Metabolite, urine Confirmed Positive(A) Not Detected 04/03/2024 10:28 AM CDT [facility] Urine Non-blood Collection / Unknown 04/01/2024 12:48 PM CDT 04/01/2024 12:59 PM CDT Narrative [facility] - 04/03/2024 10:28 AM CDT The absence of expected drug(s) and/or drug metabolite(s) may indicate non-compliance, inappropriate timing of specimen collection relative to drug administration, poor drug absorption, diluted/adulterated urine or limitations of testing. The concentration must be greater than or equal to the cutoff concentration to be reported as positive. For medical purposes only: not valid for forensic, legal, or employment use. Analysis by LC-MS/MS Liquid Chromatography/Mass Spectrometry. This test was developed and its performance characteristics validated by [facility]. It has not been cleared nor approved by the FDA. Gillian Dutton PA-C LAB_[address] [address], [facility] * (ABNORMAL) Rapid Drug Panel, Urine (with Confirmation) with THC (04/01/2024 12:48 PM CDT) [facility] Amphetamines Screen Not Detected Not Detected 04/01/2024 4:52 PM CDT [facility] Barbiturates Screen Not Detected Not Detected 04/01/2024 4:52 PM CDT [facility] Benzodiazepines Screen Not Detected Not Detected 04/01/2024 4:52 PM CDT [facility] Buprenorphine Screen Not Detected Not Detected 04/01/2024 4:52 PM CDT [facility] Cocaine Metabolite Screen Not Detected Not Detected 04/01/2024 4:52 PM CDT [facility] Methadone Screen Not Detected Not Detected 04/01/2024 4:52 PM CDT [facility] Opiates Screen Not Detected Not Detected 04/01/2024 4:52 PM CDT [facility] Oxycodone Screen Not Detected Not Detected 04/01/2024 4:52 PM CDT [facility] Phencyclidine (PCP) Screen Not Detected Not Detected 04/01/2024 4:52 PM CDT [facility] THC (Marijuana) Metab Screen Presumptive Positive(A) Not Detected 04/01/2024 4:52 PM CDT [facility] Creatinine, Urine, Random 198 >20 mg/dL 04/01/2024 4:52 PM CDT [facility] Urine Non-blood Collection / Unknown 04/01/2024 12:48 PM CDT 04/01/2024 12:59 PM CDT Narrative [facility] - 04/01/2024 4:52 PM CDT The absence of expected drug(s) and/or drug metabolite(s) may indicate non-compliance, inappropriate timing of specimen collection relative to drug administration, poor drug absorption, diluted/adulterated urine or limitations of testing. The concentration must be greater than or equal to the cutoff concentration to be reported as positive. For medical purposes only: not valid for forensic, legal, or employment use. Gillian Dutton PA-C LAB_1 [facility] [address] [place] [address], [facility] from Last 3 Months Care Teams Cable Maker Relationship Specialty [place] [address] [place] [address] PCP - General Pediatric Medicine 01/21/16
--- OUTSIDE RECORDS SUMMARY | 2024-04-23 10:43 | XMS_ITS | Encounter Summary ---
Author Organization [facility] Address [address] [address] Care Team Providers Care Steam Drier Operator Name Role Phone Mirtha Patel MD Primary Care Provider [phone] Encounter Details Date Type Department Care Team (Late st Contact Info) Description 2002 [facility] [address] [place] [address] Jhoana Conn MD / JAUND NOS; NWBRN [...] in documented in this encounter Care Teams Steam Drier Operator Relationship Specialty [place] [address] [place] [address] PCP - General Pediatric Medicine 01/21/16 documented as of this encounter
--- OUTSIDE RECORDS SUMMARY | 2024-04-23 10:43 | XMS_ITS | Encounter Summary ---
Author Organization [facility] Address [address], [place] [address] Care Team Providers Care Surgical Consultant Name Role Phone Mirtha Patel MD Primary Care Provider [phone] Encounter Details Date Type Department Care Team (Late st Contact Info) Description 04/01/2024 1:40 PM CDT Lab Visit [facility] - Laboratory [address] [place] [address] ADHD, predominantly inattentive type (HRC) Social History Tobacco Use Types Packs/Day Years [...] as of this encounter Progress Notes * Gillian Dutton PA-C - 04/01/2024 1:40 PM CDT [facility] Your urine drug screen showed marijuana present. As discussed, this cannot be used in conjunction with your ADHD medication as there are negative results with the two combined. Moving forward, if we are to continue management of ADHD, you will need to stop use of marijuana. If you have future drug screens with marijuana present, we will no longer be able to prescribe medication for ADHD in the form of stimulant medication. Gillian Dutton PA-C documented in this encounter Plan of Treatment Not on file documented as of this encounter Procedures Procedure Name Priority Date/Time Associated Diagnosis Comments THC (MARIJUANA) METAB CONFIRM, URINE Routine 04/01/2024 12:48 PM CDT ADHD, predominantly inattentive type (HRC) RAPID DRUG PANEL, URINE (WITH CONFIRMATION) Routine 04/01/2024 12:48 PM CDT ADHD, predominantly inattentive type (HRC) documented in this encounter Results * (ABNORMAL) THC (Marijuana) Metab Confirm, Urine (04/01/2024 12:48 PM CDT) [facility] Marijuana Metabolite, urine Confirmed Positive(A) Not Detected 04/03/2024 10:28 AM CDT [facility] Urine Non-blood Collection / Unknown 04/01/2024 12:48 PM CDT 04/01/2024 12:59 PM CDT [facility] - 04/03/2024 10:28 AM CDT The absence [...] developed and its performance characteristics validated by [facility]. It has not been cleared nor approved by the FDA. Gillian Dutton PA-C LAB_1 Performing Organization Address [facility]/State/[facility] [place] [address], [facility] * (ABNORMAL) Rapid Drug Panel, Urine (with Confirmation) with THC (04/01/2024 12:48 PM CDT) [facility] Amphetamines Screen Not Detected Not Detected 04/01/2024 4:52 PM CDT [facility] Barbiturates Screen Not Detected Not Detected 04/01/2024 4:52 PM CDT [facility] Benzodiazepines Screen Not Detected Not Detected 04/01/2024 4:52 PM CDT [facility] Buprenorphine Screen Not Detected Not Detected 04/01/2024 4:52 PM CDT [facility] Cocaine Metabolite Screen Not Detected Not Detected 04/01/2024 4:52 PM CDT [facility] Methadone Screen Not Detected Not Detected 04/01/2024 4:52 PM CDT [facility] Opiates Screen Not Detected Not Detected 04/01/2024 4:52 PM CDT [facility] Oxycodone Screen Not Detected Not Detected 04/01/2024 4:52 PM CDT [facility] Phencyclidine (PCP) Screen Not Detected Not Detected 04/01/2024 4:52 PM CDT [facility] THC (Marijuana) Metab Screen Presumptive Positive(A) Not Detected 04/01/2024 4:52 PM CDT [facility] Creatinine, Urine, Random 198 >20 mg/dL 04/01/2024 4:52 PM CDT [facility] Urine Non-blood Collection / Unknown 04/01/2024 12:48 PM CDT 04/01/2024 12:59 PM CDT [facility] - 04/01/2024 4:52 PM CDT The [...] or employment use. Gillian Dutton PA-C LAB_1 [facility] [address] [place] [address], [facility] documented in this encounter Visit Diagnoses Diagnosis ADHD, predominantly inattentive type (HRC) Attention deficit disorder with hyperactivity documented in this encounter Care Teams Surgical Consultant Relationship Specialty [place] [address] [place] [address] PCP - General Pediatric Medicine 01/21/16 documented as of this encounter
--- OUTSIDE RECORDS SUMMARY | 2024-04-23 10:43 | XMS_ITS | Encounter Summary ---
Author Organization [facility] Address [address], [place] [address] Care Team Providers Care Nut Feeder Name Role Phone Mirtha Patel MD Primary Care Provider [phone] Reason for Visit * Reason Comments ADHD Encounter Details Date Type Department Care Team (Latest Contact Info) Description 04/01/2024 12:20 PM CDT Office Visit [facility] Medicine [address] [place] [address] Gillian Dutton PA-C [address] [place] [address] ADHD, predominantly inattentive type (HRC) (Primary Dx); Encounter for immunization Social History Tobacco Use Types Packs/Day Years [...] on file documented as of this encounter Last Filed Vital Signs Vital Sign Reading Time Taken Comments Blood Pressure 95/60 04/01/2024 12:15 PM CDT Pulse 76 04/01/2024 12:15 PM CDT Temperature - - Respiratory Rate - - Oxygen Saturation - - Inhaled Oxygen Concentration - - Weight 49.5 kg (109 lb 0.6 oz) 04/01/2024 12:15 PM CDT Height 165.3 cm (5' 5.08) 04/01/2024 12:15 PM C DT Body Mass Index 18.1 04/01/2024 12:15 PM CDT documented in this encounter Patient Instructions * Patient Instructions* Gillian Dutton PA-C - 04/01/2024 12:20 PM CDT Discussed ADHD today. UDS and CSA completed today. Follow up in 2 weeks for med review. Watch for time of effectiveness and how it is working Monitor appetite Take 1 pill to start, if after 3-4 days you feel 10 mg is not sufficient, may increase to 20 mg dose. Thank you for allowing me to participate in your health care today. Please follow the recommendations discussed at today's visit as well as those included on this After Visit Summary (AVS). documented in this encounter Progress Notes * Gillian Dutton PA-C - 04/01/2024 12:20 PM CDT Chief Complaint Patient presents with ADHD SUBJECTIVE: Ravindra Batista is a 23 y.o. old female presents with unaccompanied for ADHD. The patient was diagnosed with ADHD-I by Lobo Hassan PsyD, LP at [facility]. The patient has never taken medication before. Testing done 03/27/24. Pt moves to school tomorrow. 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 Attending school at [employer] for a degree in psychology. Coexisting conditions: Anxiety NOS and Depression NOS Was on Zoloft 3 years ago but was not on it long as it made her sick - vomiting in AM and no appetite Did use marijuana 2 days ago. Psychosocial/Emotional status: stable OBJECTIVE BP 95/60 (BP Location: Left Arm, BP Cuff Size: Regular) Pulse 76 Ht 5' 5.08 (1.653 m) Wt 109lb 0.6 oz (49.5 kg) BMI 18.10 kg/m?? Wt Readings from Last 3 Encounters: 04/01/24 109 lb 0.6 oz (49.5 kg) 01/24/22 104 lb (47.2 kg) (7%)* 11/05/21 103 lb (46.7 kg) (6%)* * Growth percentiles are based on CDC (Girls, 2-20 Years) data. Ht Readings from Last 3 Encounters: 04/01/24 5' 5.08 (1.653 m) 03/31/21 5' 4 (1.626 m) (46%)* 05/11/20 5' 4.25 (1.632 m) (51%)* * Growth percentiles are based on CDC (Girls, 2-20 Years) data. BP Readings from Last 3 Encounters: 04/01/24 95/60 11/07/22 106/54 01/24/22 99/67 General: Patient is alert, cooperative and in NAD. No mood disturbance, anxiety or oppositional features observed. No tics observed. HEENT: Head: normocephalic Eyes: PERRL, EOMs intact, conjunctiva clear bilaterally LUNGS: clear to auscultation, no wheezes or rales CV: regular rate and rhythm, normal S1 and S2 without murmur or click NEURO: gait normal for age and speech normal for age ASSESSMENT Ravindra was seen today for adhd. Diagnoses and all orders for this visit: ADHD, predominantly inattentive type (HRC) - Rapid Drug Panel, Urine (with Confirmation) with THC; Future Encounter for immunization - TDAP PLAN - begin: Adderall 10 mg XR daily. Discussed potential side effects, risks and benefits of medication prescribed. Patient/parent agrees with plan. Discussed ADHD today. UDS and CSA completed today. Follow up in 2 weeks for med review. Watch for time of effectiveness and how it is working Monitor appetite Take 1 pill to start, if after 3-4 days you feel 10 mg is not sufficient, may increase to 20 mg dose. - Next follow up visit in 2 week(s). Gillian Cosby PA-C 04/01/2024, 12:43 PM documented in this encounter Plan of Treatment Not on file documented as of this encounter Results * (ABNORMAL) Rapid Drug Panel, Urine (with Confirmation) with THC (04/01/2024 12:48 PM CDT) [facility] Amphetamines Screen Not Detected Not Detected 04/01/2024 4:52 PM CDT [facility] Barbiturates Screen Not Detected Not Detected 04/01/2024 4:52 PM CDT [facility] Benzodiazepines Screen Not Detected Not Detected 04/01/2024 4:52 PM CDT [facility] Buprenorphine Screen Not Detected Not Detected 04/01/2024 4:52 PM CDT [facility] Cocaine Metabolite Screen Not Detected Not Detected 04/01/2024 4:52 PM CDT [facility] Methadone Screen Not Detected Not Detected 04/01/2024 4:52 PM CDT [facility] Opiates Screen Not Detected Not Detected 04/01/2024 4:52 PM CDT [facility] Oxycodone Screen Not Detected Not Detected 04/01/2024 4:52 PM CDT [facility] Phencyclidine (PCP) Screen Not Detected Not Detected 04/01/2024 4:52 PM CDT [facility] THC (Marijuana) Metab Screen Presumptive Positive(A) Not Detected 04/01/2024 4:52 PM CDT [facility] Creatinine, Urine, Random 198 >20 mg/dL 04/01/2024 4:52 PM CDT [facility] Urine Non-blood Collection / Unknown 04/01/2024 12:48 PM CDT 04/01/2024 12:59 PM CDT [facility] - 04/01/2024 4:52 PM CDT The [...] or employment use. Gillian Dutton PA-C [facility] [address] [place], [place] [id number] [place] [address] documented in this encounter Visit Diagnoses Diagnosis ADHD, predominantly inattentive type (HRC)- Primary Attention deficit disorder with hyperactivity Encounter for immunization Need for other specified prophylactic vaccination against single bacterial disease documented in this encounter Care Teams Nut Feeder Relationship Specialty [place] [address] [place] [address] PCP - General Pediatric Medicine 01/21/16 documented as of this encounter
--- OUTSIDE RECORDS SUMMARY | 2024-04-23 10:43 | XMS_ITS | Clinical Summary ---
Author Organization [facility] Address [place], [place] [address] Care Team Providers Care Tool Room Machinist Name Role Phone Pcp, No Primary Care Provider Unavailabl e Allergies No known active allergies Medications Medication Sig Dispensed Refills Start Date End Date Status polyethylene glycol (MIRALAX) 17 g powder for solutionIndications:Con stipation, unspecified constipation type Take 17 g by mouth once daily if needed for Constipation. 0 10/09/2016 Active Social History Tobacco Use Types Packs/Day Years Used Date Smoking Tobacco: Never Assessed Sex and Gender Information Value Date Recorded Sex Assigned at Not on file Gender Identity Not on file Sexual Orientation Not on file Last Filed Vital Signs Vital Sign Reading Time Taken Comments Blood Pressure 104/59 09/04/2020 5:50 AM CHILDRENS CLUB ATTENDANT Pulse 93 09/04/2020 5:50 AM CHILDRENS CLUB ATTENDANT Temperature 36.8 ??C (98.2 ??F) 09/04/2020 4:35 AM CS T Respiratory Rate 21 09/04/2020 4:35 AM CHILDRENS CLUB ATTENDANT Oxygen Saturation 100% 09/04/2020 5:50 AM CHILDRENS CLUB ATTENDANT Inhaled Oxygen Concentration - - Weight 47.6 kg (105 lb) 09/04/2020 4:35 AM CHILDRENS CLUB ATTENDANT Height 162.6 cm (5' 4) 09/04/2020 4:35 AM CHILDRENS CLUB ATTENDANT Body Mass Index 18.02 09/04/2020 4:35 AM CHILDRENS CLUB ATTENDANT Plan of Treatment Health Maintenance Due Date Last Done Comments Tdap 2013 Depression screening for age 12+ 2014 HIV for age 15-65 2017 HPV series for age 9-26 (1 - 3-dose series) 2017 BMI (ht and wt on same day) for age 18+ 2020 Hepatitis C screening for ag e 18-79 2020 Tetanus booster 2022 Pap test for age 21-65 2023 COVID-19 vaccine series (3 - 2022- season) 2024 07/28/2021, 10/20/2020 Influenza for age 9-49 04/07/2024 Meningococcal series for age 11-21 Aged Out No longer eligible b ased on patient's age to complete this topic Pneumococcal series for age 6-64 Aged Out No longer eligible b ased on patient's age to complete this topic Care Teams Tool Room Machinist Relationship Specialty Start Date End Date Pcp, No . PCP - General 03/31/21
--- OUTSIDE RECORDS SUMMARY | 2024-04-23 10:43 | XMS_ITS | Encounter Summary ---
Author Organization [facility] Address [address] [address] Care Team Providers Care Nephrology Nurse Name Role Phone Mirtha Patel MD Primary Care Provider [phone] Encounter Details Date Type Department Care Team (Latest Contact Info) Description 04/17/2024 3:00 PM CDT Telemedicine [facility] Family Medicine [address] [place] [address] Gillian Dutton PA-C [address] [place] [address] ADHD, predominantly inattentive type (HRC) (Primary Dx) Social History Tobacco Use Types Packs/Day Years [...] Progress Notes * Gillian Dutton PA-C - 04/17/2024 3:00 PM CDT No chief complaint on file. This is a Telehealth visit with provider at home and patient at home. This visit is taking place inreal-time with [facility]. Ravindra Batista is a 23 y.o. old female who has a visit today to discuss med review. Last seen on 04/01/24 and started on Adderall XR 10 mg daily. Pt was able to sampler pickup medication States the first day she took it she moved on to campus. Even with taking 10 mg dose felt benefit from the medication - was able to concentrate and focus onthe meetings she had. States she took 1 pill per day for 3-4 days then went up to 2 pills daily. Not sure if she felt much of a difference. States she stopped the med for 1-2 days when she didn't need to be as focused as well as one day over the weekend. Generally taking medication around 8-9 AM. Notices around 3-4 PM that the med is wearing off. Evenings are harder to focus then. Side effects: Decreased appetite - is not a breakfast person Will try to eat but not as much Has normal dinner. Did get [place] one day and noticed that she got very jittery. Almost Complete review of Systems negative other than what is noted in HPI I have personally reviewed the patient's allergies, medications, and past medical history in detailand updated the patient record as necessary. OBJECTIVE: Physical Exam: There were no vitals taken for this visit. GENERAL: well-developed, well-nourished female sitting in no apparent distress EYES: normal appearance PSYCH: normal affect and tone ASSESSMENT: Diagnoses and all orders for this visit: ADHD, predominantly inattentive type (HRC) - amphetamine-dextroamphetamine (ADDERALL) 5 MG tablet; Take 1 Tablet (5 mg) by mouth daily. Take 1tablet in Afternoon if needed PLAN: She will stick with Adderall 10 mg XR daily with additional 5 mg in afternoon as needed. Send [employer] message in 2 weeks with update. Gillian Dutton PA-C 04/17/2024, 3:21 PM documented in this encounter Plan of Treatment Not on file documented as of this encounter Visit Diagnoses Diagnosis ADHD, predominantly inattentive type (HRC)- Primary Attention deficit disorder with hyperactivity documented in this encounter Care Teams Nephrology Nurse Relationship Specialty [place] [address] [facility] [address] PCP - General Pediatric Medicine 01/21/16 documented as of this encounter
--- OUTSIDE RECORDS SUMMARY | 2024-04-23 10:43 | XMS_ITS | Encounter Summary ---
Author Organization [facility] Address [address] [place] [address] Care Team Providers Care Class A Regional Drivers Name Role Phone Mirtha Patel MD Primary Care Provider [phone] Encounter Details Date Type Department Care Team (Late st Contact Info) Description [address] [place] [address] Favio Nava MD [facility] [...] delivery documented in this encounter Care Teams Class A Regional Drivers Relationship Specialty [place] [address] [place] [address] PCP - General Pediatric Medicine 01/21/16 documented as of this encounter
--- OUTSIDE RECORDS SUMMARY | 2024-04-23 10:43 | XMS_ITS | Encounter Summary ---
Author Organization [facility] Address [address] [address] Care Team Providers Care Dyer Helper Name Role Phone Mirtha Patel MD Primary Care Provider [phone] Encounter Details Date Type Department Care Team (Late st Contact Info) Description 2002 [facility] [address] [place] [address] Eliot Cameron MD [address] [place], [place] [id number] VOMITING ALONE Social History Tobacco Use Types Packs/Day Years Used Date Smoking Tobacco: Never Assessed Sex and Gender Information Value Date Recorded Sex Assigned at Not on file Gender Identity Not on file Sexual Orientation Not on file documented as of this encounter Plan of Treatment Not on file documented as of this encounter Visit Diagnoses Diagnosis Vomiting alone documented in this encounter Care Teams Dyer Helper Relationship Specialty [place] [address] [place] [address] PCP - General Pediatric Medicine 01/21/16 documented as of this encounter
[2024-04-23 10:54] LABS: Appearance Urine Cloudy (Clear); Bilirubin Urine Negative (Negative); Blood Urine 3+ (Negative); Color Urine Yellow (Yellow); Glucose Urine Negative (Negative); Ketones Urine Negative (Negative); Leukocyte Esterase Urine 2+ (Negative); Nitrite Urine Negative (Negative); Protein Urine Trace (Negative); Urobilinogen Urine 0.2 (0.2-1.0)
[2024-04-23 11:10] LABS: WBC Urine >100 (0-5)
== END 2024-04-23 11:50 | disposition home or self-care (01) ==
PROVIDERS: Emergency Provider Family Medicine
DX: N30.90 Cystitis, unspecified without hematuria (principal)
CPT/HCPCS: 81001; 87086; 87186; 99283; 99284

== ENCOUNTER 2024-06-12 22:14 | Emergency (ER) | payer OTHER, SELFPAY ==
[2024-06-12 22:40] VITALS: BP 104/67; PULSE 84; RESP 16; TEMP 36.9; O2SAT 100; BMI 18.3
--- NOTE | 2024-06-12 22:46 | ED.GENADULT ---
HPI - General Adult General Date Seen: 06/12/24 Chief complaint: Urogenital Problems, Female Stated complaint: UTI symptoms Time Seen by Provider: 06/12/24 22:44 History of Present Illness HPI narrative: 23-year-old female presenting to the ER today with urinary urgency, frequency. She presents to the ER tonight with her boyfriend. 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 She has noted these urinary symptoms for the past 2 days or so. She is not having any fever chills. No nausea or vomiting. No weakness. No flank pain. She does not think she is . She reports she had a UTI about a month ago. In review of medical record I see that she was evaluated here in the ER on 04/23. Urinalysis showed 10-25 RBC, > 100 WBC, negative nitrite. Treated with cephalexin. Urine culture grew pansensitive E coli. Related Data Home Medications ?Medication ?Instructions ?Recorded ?Confirmed methylphenidate HCl 18 mg 18 mg PO QAM 06/12/24 06/12/24 tablet,extended release 24 hr Allergies Allergy/AdvReac Type Severity Reaction Status Date / Time No Known Drug Allergies Allergy Verified 05/04/23 07:25 [facility] Medical History (Updated 06/12/24 @ 23:37 by Roni Brizuela MD) No significant past medical history Surgical History (Updated 06/12/24 @ 23:25 by James Ricardo RN) No significant past surgical history Social History Smoking Status: Never smoker Do you use any of these nicotine containing products: None Second hand tobacco smoke exposure: No How often do you have a drink containing alcohol: never How often do you have six or more drinks on one occasion: Never AUDIT-C Alcohol total score: 0 Non-prescribed substance use: denies use service: No Exam Narrative: Exam Narrative: Constitutional: Appears well-developed and well-nourished. Alert. Conversant. Non toxic. HENT: Head: Atraumatic. Nose: Nose normal. Mouth/Throat: Oral mucosa is clear and moist. no trismus. Eyes: Conjunctivae normal. EOM normal. Pupils equal, round, and reactive to light. No scleral icterus. Neck: Normal range of motion. Neck supple. No tracheal deviation present. Cardiovascular: Normal rate, regular rhythm. Pulmonary/Chest: Effort normal. No stridor. No respiratory distress. Abdominal: Soft. Bowel sounds normal. No distension. No mass. No tenderness. No rebound. No guarding. No CVA tenderness. Musculoskeletal: RUE: Normal range of motion. No tenderness. No deformity LUE: Normal range of motion. No tenderness. No deformity RLE: Normal range of motion. No edema. No tenderness. No deformity LLE: Normal range of motion. No edema. No tenderness. No deformity Neurological: Alert and oriented to person, place, and time. Normal strength. CN II-VII intact. No sensory deficit. GCS eye subscore is 4. GCS verbal subscore is 5. GCS motor subscore is 6. Normal coordination Skin: Skin is warm and dry. No rash noted. No pallor. Normal capillary refill. Psychiatric: Normal mood. Normal affect. Const: Vital Signs, click to edit/add: Vital Signs - 24 hr 06/12/24 22:40 06/12/24 23:44 06/12/24 23:44 Temperature 98.5 F 98.5 F 98.5 F Pulse Rate [Pulse Oximeter] 84 79 79 Respiratory Rate 16 16 16 Blood Pressure [Ri t Upper Arm] 104/67 110/68 110/68 Pulse Oximetry 100 100 Oxygen Delivery Me thod Room Air Room Air Course Vital Signs Vital signs: Initial Vital Signs Temperature 98.5 F 06/12/24 22:40 Temperature Source Temporal Artery Scan 06/12/24 22:40 Pulse Rate 84 06/12/24 22:40 Respiratory Rate 16 06/12/24 22:40 Blood Pressure 104/67 06/12/24 22:40 Blood Pressure Mean 79 06/12/24 22:40 Blood Pressure Position Sitting 06/12/24 22:40 Pulse Oximetry 100 06/12/24 22:40 Oxygen Delivery Method Room Air 06/12/24 22:40 Vital Signs Temperature 98.5 F 06/12/24 22:40 Pulse Rate 84 06/12/24 22:40 Respiratory Rate 16 06/12/24 22:40 Blood Pressure 104/67 06/12/24 22:40 Pulse Oximetry 100 06/12/24 22:40 Oxygen Delivery Method Room Air 06/12/24 22:40 Temperature 98.5 F 06/12/24 23:44 Pulse Rate 79 06/12/24 23:44 Respiratory Rate 16 06/12/24 23:44 Blood Pressure 110/68 06/12/24 23:44 Pulse Oximetry 100 06/12/24 23:44 Oxygen Delivery Method Room Air 06/12/24 23:44 Medical Decision Making MDM Narrative Medical decision making narrative: This patient presents for evaluation of dysuria, urgency, frequency ongoing for 2 days.. This clinically is consistent with a urinary tract infection. Urinalysis confirms the infection. There has been no fever, back/flank pain or significant abdominal pain. There is no clinical evidence of pyelonephritis, appendicitis, colitis, diverticulitis or any intraabdominal catastrophe. The patient will be started on antibiotics for the infection. Return if increasing pain, vomiting, fever, or inability to tolerate the oral antibiotic. Instymeds prescription for cephalexin 500 mg b.i.d.. Urine culture pending and we will adjust antibiotics as needed based on sensitivity results. Recommend close outpatient follow-up with primary care for re-evaluation the next few days. Lab Data Labs: Lab Results 06/12/24 Range/Units 22:20 Urine Color Yellow (Yellow) Urine Appearance Cloudy A (Clear) Urine pH 7.0 (5.0-8.5) Ur Specific W[place]er 1.020 (1.000-1.030) Urine Protein Negative (Negative) Urine Glucose (UA) Negative (Negative) Urine Ketones Negative (Negative) Urine Blood Trace-intact A (Negative) Urine Nitrite Negative (Negative) Urine Bilirubin Negative (Negative) Urine Urobilinogen 1.0 (0.2-1.0) Ur Leukocyte Esterase 1+ A (Negative) Urine RBC 0-2 (0-2) Urine WBC 10-25 A (0-5) Ur Squamous Epith Cells Few (None-Few) Amorphous Sediment Few A (None) Urine Bacteria Few A (None) Urine HCG, Qual Negative (Negative) Discharge Plan Discharge Clinical Impression: Urinary tract infection Patient Disposition: Home, Self-Care Condition: Stable Instructions: Urinary Tract Infection in Women (DC) Additional Instructions: As we discussed, please come back to the ER immediately if you have problems especially high fever, flank pain, uncontrolled nausea vomiting, weakness. Please follow-up with your regular doctor for recheck within the next 1-2 weeks. Prescriptions: No Action methylphenidate HCl 18 mg tablet extended release 24hr 18 mg PO QAM Follow Up/Referrals: Provider,Not a Local [Primary Care Provider] - Stand Alone Forms: [employer] Info Instructions
[2024-06-12 22:56] LABS: Appearance Urine Cloudy (Clear); Bilirubin Urine Negative (Negative); Blood Urine Trace-intact (Negative); Color Urine Yellow (Yellow); Glucose Urine Negative (Negative); Ketones Urine Negative (Negative); Leukocyte Esterase Urine 1+ (Negative); Nitrite Urine Negative (Negative); Protein Urine Negative (Negative)
[2024-06-12 22:59] LABS: Ur HCG Qualitative* Negative (Negative)
--- OUTSIDE RECORDS SUMMARY | 2024-06-12 23:01 | XMS_ITS | Encounter Summary ---
Author Organization [facility] Address [address], [place] [address] Care Team Providers Care Butane Compressor Operator Name Role Phone Mirtha Patel MD Primary Care Provider [phone] Reason for Visit * Reason Comments ADHD Encounter Details Date Type Department Care Team (Latest Contact Info) Description 04/01/2024 12:20 PM CDT Office Visit [facility] [address] [place] [address] Gillian Dutton PA-C [address] [place] [address] ADHD, predominantly inattentive type (HRC) [...] ADHD-I by Lobo Hassan PsyD, LP at [facility]. The patient has never taken medication before. Testing done 03/27/24. Pt moves to school tomorrow. 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 Attending school at [employer] for a degree in psychology. Coexisting conditions: [...] Confirmation) with THC (04/01/2024 12:48 PM CDT) [facility] Amphetamines Screen Not Detected Not Detected 04/01/2024 4:52 PM CDT [facility] Barbiturates Screen Not Detected Not Detected 04/01/2024 4:52 PM CDT [facility] Benzodiazepines Screen Not Detected Not Detected 04/01/2024 4:52 PM CDT [facility] Buprenorphine Screen Not Detected Not Detected 04/01/2024 4:52 PM CDT [facility] Cocaine Metabolite Screen Not Detected Not Detected 04/01/2024 4:52 PM CDT [facility] Methadone Screen Not Detected Not Detected 04/01/2024 4:52 PM CDT [facility] Opiates Screen Not Detected Not Detected 04/01/2024 4:52 PM CDT [facility] Oxycodone Screen Not Detected Not Detected 04/01/2024 4:52 PM CDT [facility] Phencyclidine (PCP) Screen Not Detected Not Detected 04/01/2024 4:52 PM CDT [facility] THC (Marijuana) Metab Screen Presumptive Positive(A) Not Detected 04/01/2024 4:52 PM CDT [facility] Creatinine, Urine, Random 198 >20 mg/dL 04/01/2024 4:52 PM CDT [facility] Urine Non-blood Collection / Unknown 04/01/2024 12:48 PM CDT 04/01/2024 12:59 PM CDT [facility] - 04/01/2024 4:52 PM CDT The [...] or employment use. Gillian Dutton PA-C LAB[facility]1 [facility] [address] [facility] [place], [place] [id number] [place] [address] documented in this encounter Visit Diagnoses Diagnosis ADHD, predominantly inattentive type (HRC)- Primary Attention deficit disorder with hyperactivity Encounter for immunization Need for other specified prophylactic vaccination against single bacterial disease documented in this encounter Care Teams Butane Compressor Operator Relationship Specialty [place] [address] [place] [address] PCP - General Pediatric Medicine 01/21/16 documented as of this encounter
--- OUTSIDE RECORDS SUMMARY | 2024-06-12 23:01 | XMS_ITS | Encounter Summary ---
Author Organization [facility] Address [address] [address] Care Team Providers Care Trimmer Sawyer Name Role Phone Mirtha Patel MD Primary Care Provider [phone] Reason for Visit * Reason Comments MEDICATION, NOS Encounter Details Date Type Department Care Team (Late st Contact Info) Description 04/02/2024 Telephone [facility] Development Analyst [address] [facility] [place] [address] Gillian Dutton PA-C [address] [place] [address] MEDICATION, NOS Social History Tobacco [...] 9:38 AM CDT Clinician: Review and advise Patient/manager intensive care unit request: New medication Specific Request: Patient is [...] hyperactivity documented in this encounter Care Teams Trimmer Sawyer Relationship Specialty [place] [address] [place] [address] PCP - General Pediatric Medicine 01/21/16 documented as of this encounter
--- OUTSIDE RECORDS SUMMARY | 2024-06-12 23:01 | XMS_ITS | Encounter Summary ---
Author Organization [employer] Address [address], [place] [address] Care Team Providers Care Spindle Tester Name Role Phone Mirtha Patel MD Primary Care Provider [phone] Reason for Visit * Reason Comments QUESTIONS, GENERAL Entered automaticall y based on patient selection in [employer]. Encounter Details Date Type Department Care Team (Late st Contact Info) Description 05/06/2024 11:00 AM CDT E-Visit [facility] Family Medicine [address] [place] [address] Tez Dutton PA-C [address] [place] [address] Dx: ADHD, predominantly inattentive type (HRC) Social History [...] as of this encounter Nursing Notes * Christian Mauricio Xrwcomm - 05/06/2024 2:32 PM CDT amphetamine-dextroamphetamine (ADDERALL) 5 MG tablet Medication started: 04/17/2024 Last ordered by TEZ DUTTON M: 04/17/2024 (19 days ago) QTY: 15, Refills: 0, Sig: take 1 tablet(5 mg) by mouth daily. take 1 tablet in afternoon if needed (unchanged) -> Release formulation of medication doesn't match records, please verify. -> Medication cannot be delegated. Last qualifying visit: 04/17/2024 (with TEZ DUTTON) Next scheduled visit: None [facility] [employer] Emb[facility]ded Refills, Reference: [id number], 05/06/2024 2:32:22 PM JULIENTAlvarez: INES Refill Centralized Services - Primary Care [[id number]] ([id number]) amphetamine-dextroamphetamine XR (ADDERALL XR) 10 MG 24 hour release capsule Medication started: 04/02/2024 Last ordered by TEZ DUTTON: 04/02/2024 (34 days ago) QTY: 30, Refills: 0, Sig: take 1 capsule (10 mg) by mouth daily. (unchanged) -> Release formulation of medication doesn't match records, please verify. -> Medication cannot be delegated. Last qualifying visit: 04/17/2024 (with TEZ DUTTON) Next scheduled visit: None [facility] Embedded Refills, Reference: [id number], 05/06/2024 2:32:22 PM CDT, Pool: INES Refill Centralized Services - Primary Care [[id number]] ([id number]) * Christian Mauriciowruben - 05/06/2024 2:32 PM CDT No Careplan note found by [employer]. documented in this encounter Plan of Treatment Not on file documented as of this encounter Visit Diagnoses Diagnosis ADHD, predominantly inattentive type (HRC) Attention deficit disorder with hyperactivity documented in this encounter Care Teams Spindle Tester Relationship Specialty [place] [address] [place] [address] PCP - General Pediatric Medicine 01/21/16 documented as of this encounter
--- OUTSIDE RECORDS SUMMARY | 2024-06-12 23:01 | XMS_ITS | Encounter Summary ---
[facility] Address [address], [place] [address] Care Team Providers Care Carbide Tool Maker Name Role Phone Mirtha Patel MD Primary Care Provider [phone] Encounter Details Date Type Department Care Team (Latest Contact Info) Description 04/17/2024 3:00 PM CDT Telemedicine [facility] Family Medicine [address] [place] [address] Gillian Dutton PA-C [address] [place] [address] ADHD, predominantly inattentive type (HRC) [...] 10 mg daily. Pt was able to diamond picker medication States the first day she took [...] as much Has normal dinner. Did get [place] one day and noticed that she got [...] 5 mg in afternoon as needed. Send [employer] message in 2 weeks with update. Gillian Dutton PA-C 04/17/2024, 3:21 PM documented in this encounter Plan of Treatment Not on file documented as of this encounter Visit Diagnoses Diagnosis ADHD, predominantly inattentive type (HRC)- Primary Attention deficit disorder with hyperactivity documented in this encounter Care Teams Carbide Tool Maker Relationship Specialty [place] [address] [place] [address] PCP - General Pediatric Medicine 01/21/16 documented as of this encounter
--- OUTSIDE RECORDS SUMMARY | 2024-06-12 23:01 | XMS_ITS | Encounter Summary ---
[facility] Organization [facility] Address [address] [place] [address] Care Team Providers Care Finishing Range Operator Name Role Phone Mirtha Patel MD Primary Care Provider [phone] Encounter Details Date Type Department Care Team (Late st Contact Info) Description 05/02/2013 Emergency Room External to [facility], Provider SORE THROAT Social History Tobacco Use [...] as of this encounter Progress Notes * [facility], Provider - 05/02/2013 12:00 AM CDT documented in this encounter Plan of Treatment Not on file documented as of this encounter Visit Diagnoses Not on filedocumented in this encounter Care Teams Finishing Range Operator Relationship Specialty [place] [address] [place] [address] PCP - General Pediatric Medicine 01/21/16 documented as of this encounter
--- OUTSIDE RECORDS SUMMARY | 2024-06-12 23:01 | XMS_ITS | Clinical Summary ---
Author Organization [facility] Address [address] [place] [address] Care Team Providers Care Lease Analyst Name Role Phone Mirtha Patel MD Primary Care Provider [phone] Source Comments You are receiving this document as you are listed as the primary care provider,follow-up provider, or the patient has been referred to you for consultation.This is in compliance with the Medicare and[facility] EHR Incentive Program,which states Providers who transition their patient to another setting of careor provider of care or refers their patient to another provider of care shouldprovide summary care record for each transition of care or referral. [employer] Allergies Active Allergy Reactions Criticality Noted Date Comments Amphetamine-Dextroamph etamine Gastrointestinal 06/05/2024 Nausea and vomiting. Medications Medication Sig Dispensed Refills Start Date End Date Status methylphenidate 18 MG controlled release tabletIndications: ADHD, predominantly inattentive type (HRC) Take 1 Tablet (18 mg) by mouth daily. 30 Tablet 06/05/2024 Active amphetamine-dextro amphetamine (ADDERALL) 5 MG tabletIndications: ADHD, predominantly inattentive type (HRC) Take 1 Tablet (5 mg) by mouth daily. Take 1 tablet in Afternoon if needed 30 Tablet 05/06/2024 Discontinued amphetamine-dextro amphetamine XR (ADDERALL XR) 10 MG 24 hour release capsuleIndications :ADHD, predominantly inattentive type (HRC) Take 1 Capsule (10 mg) by mouth daily. 30 Capsule 05/06/2024 4 Discontinued Active Problems Problem Noted Date Diagnosed Date ADHD, predominantly inattentive type 04/01/2024 Overview (04/01/2024): Diagnosed at [facility] By Lobo Hassan PsyD, LP 03/27/24 Lactose intolerance 03/13/2019 Cafe au lait spots [...] Encounters Date Type Department Care Team Description 06/05/2024 2:40 PM CDT Telemedicine [address] [address] Gillian Dutton PA-C ADHD, predominantly inattentive type (HRC) (Primary Dx) 05/28/2024 2:20 PM CDT E-Visit [address] [address] Gillian Dutton PA-C Chief Comp: QUESTIONS, GENERAL 05/06/2024 11:00 AM CDT E-Visit [address] [address] Gillian Dutton PA-C Dx: ADHD, predominantly inattentive type (HRC) 04/17/2024 3:00 PM CDT Telemedicine [address] [address] Gillian Dutton PA-C ADHD, predominantly inattentive type (HRC) (Primary Dx) 04/02/2024 Telephone [facility] [employer] [address] [place] [address], [place] [address] Gillian Dutton PA-C MEDICATION, NOS 04/01/2024 1:40 PM CDT Lab Visit [facility] - [facility] [address] [place] [address] ADHD, predominantly inattentive type (HRC) 04/01/2024 12:20 PM CDT Office Visit [facility] [address] [place] [address] Gillian Dutton PA-C ADHD, predominantly inattentive type [...] 10/09/2007, 3,2002,2002 Influenza IIV4 (Quadrivalent ) 0.5mL (27136) 08/15/2020 Influenza LAIV (Nasal, 2-49 yrs) 05/09/2014,05/07 [...] 2002 Hep C Screening (Preventive Services) 2002 Chlamydia 03/13/2020 03/13/2019 (Completed) Adult Preventive Visit 2020 0, 03/13/2019, 03/20/2017, Additional history exists COVID-19 Vaccine ( season) 2024 07/28/2021, 10/20/2020, 09/29/2020 Influenza (#1) 2024 08/15/2020, 10/2013, 05/23/2013, Additional history exists DTaP/Tdap/Td (8 [...] 03/13/2019 (Completed) MCV4 Completed 03/13/2019, 05/09, 11/02/2011 Infant RSV Aged Out No longer eligi ble based on patient's age to complete this topic Procedures Procedure Name Priority Date/Time Associated Diagnosis [...] Positive(A) Not Detected 04/03/2024 10:28 AM CDT [facility] Urine Non-blood Collection / Unknown 04/01/2024 12:48 PM CDT 04/01/2024 12:59 PM CDT [facility] - 04/03/2024 10:28 AM CDT The absence [...] developed and its performance characteristics validated by [facility]. It has not been cleared nor approved by the FDA. Gillian Dutton PA-C LAB_1 [facility] [address] [place] [address], [facility] * (ABNORMAL) Rapid Drug Panel, Urine (with Confirmation) with THC (04/01/2024 12:48 PM CDT) Amphetamines Screen Not Detected Not Detected 04/01/2024 4:52 PM CDT [facility] Barbiturates Screen Not Detected Not Detected 04/01/2024 4:52 PM CDT [facility] Benzodiazepines Screen Not Detected Not Detected 04/01/2024 4:52 PM CDT [facility] Buprenorphine Screen Not Detected Not Detected 04/01/2024 4:52 PM CDT [facility] Cocaine Metabolite Screen Not Detected Not Detected 04/01/2024 4:52 PM CDT [facility] Methadone Screen Not Detected Not Detected 04/01/2024 4:52 PM CDT [facility] Opiates Screen Not Detected Not Detected 04/01/2024 4:52 PM CDT [facility] Oxycodone Screen Not Detected Not Detected 04/01/2024 4:52 PM CDT [facility] Phencyclidine (PCP) Screen Not Detected Not Detected 04/01/2024 4:52 PM CDT [facility] THC (Marijuana) Metab Screen Presumptive Positive(A) Not Detected 04/01/2024 4:52 PM CDT [facility] Creatinine, Urine, Random 198 >20 mg/dL 04/01/2024 4:52 PM CDT [facility] Urine Non-blood Collection / Unknown 04/01/2024 12:48 PM CDT 04/01/2024 12:59 PM CDT Narrative [facility] - 04/01/2024 4:52 PM CDT The [...] or employment use. Gillian Dutton PA-C LAB_1 Performing Organization Address City/State/[facility] Co de Phone Number [facility] [address] [place] [address], [facility] from Last 3 Months Care Teams Lease Analyst Relationship Specialty [place] [address] [id number] PCP - General Pediatric Medicine 01/21/16
--- OUTSIDE RECORDS SUMMARY | 2024-06-12 23:01 | XMS_ITS | Encounter Summary ---
Author Organization [facility] Address [address], [place] [address] Care Team Providers Care Swim Coach Name Role Phone Mirtha Patel MD Primary Care Provider [phone] Encounter Details Date Type Department Care Team (Late st Contact Info) Description 2002 [facility] Pediatrics [address] [place] [address] Jhoana Conn MD / JAUND NOS; NWBRN [...] in documented in this encounter Care Teams Swim Coach Relationship Specialty [place] [address] [place] [address] PCP - General Pediatric Medicine 01/21/16 documented as of this encounter
--- OUTSIDE RECORDS SUMMARY | 2024-06-12 23:01 | XMS_ITS | Encounter Summary ---
Author Organization [facility] Address [address] [address] Care Team Providers Care Rug Shampooer Name Role Phone Mirtha Patel MD Primary Care Provider [phone] Encounter Details Date Type Department Care Team (Late st Contact Info) Description 2002 [facility] Pediatrics [address] [place] [address] Eliot Cameron MD [address] [place], [place] [address] VOMITING ALONE Social History Tobacco Use Types [...] alone documented in this encounter Care Teams Rug Shampooer Relationship Specialty [place] [address] [place] [address] PCP - General Pediatric Medicine 01/21/16 documented as of this encounter
--- OUTSIDE RECORDS SUMMARY | 2024-06-12 23:01 | XMS_ITS | Encounter Summary ---
Author Organization [facility] Address [address] [place] [address] Care Team Providers Care Dishroom Attendant Name Role Phone Mirtha Patel MD Primary Care Provider [phone] Encounter Details Date Type Department Care Team (Late st Contact Info) Description 11/25/2011 Emergency Room External to [facility], Provider HEADACHE Social History Tobacco Use [...] as of this encounter Progress Notes * [facility], Provider - 11/25/2011 12:00 AM CDT documented in this encounter Plan of Treatment Not on file documented as of this encounter Visit Diagnoses Not on filedocumented in this encounter Care Teams Dishroom Attendant Relationship Specialty [place] [address] [place] [address] PCP - General Pediatric Medicine 01/21/16 documented as of this encounter
--- OUTSIDE RECORDS SUMMARY | 2024-06-12 23:01 | XMS_ITS | Encounter Summary ---
Author Organization [facility] Address [address] [place] [address] Care Team Providers Care Brand Ambassador Promotional Model Name Role Phone Mirtha Patel MD Primary Care Provider [phone] Encounter Details Date Type Department Care Team [...] on filedocumented in this encounter Care Teams Brand Ambassador Promotional Model Relationship Specialty [place] [address] [place] [address] PCP - General Pediatric Medicine 01/21/16 documented as of this encounter
--- OUTSIDE RECORDS SUMMARY | 2024-06-12 23:01 | XMS_ITS | Encounter Summary ---
Author [facility] Address [address], [place] [address] Care Team Providers Care Gig Tender Name Role Phone Mirtha Patel MD Primary Care Provider [phone] Encounter Details Date Type Department Care Team (Late st Contact Info) Description 04/01/2024 1:40 PM CDT Lab Visit [facility] Laboratory [address] [place] [address] ADHD, predominantly inattentive type (HRC) [...] Metab Confirm, Urine (04/01/2024 12:48 PM CDT) [facility] Marijuana Metabolite, urine Confirmed Positive(A) Not Detected 04/03/2024 10:28 AM CDT [facility] Urine Non-blood Collection / Unknown 04/01/2024 12:48 PM CDT 04/01/2024 12:59 PM CDT [facility] - 04/03/2024 10:28 AM CDT The [...] developed and its performance characteristics validated by [facility]. It has not been cleared nor approved by the FDA. Gillian Dutton PA-C LAB_1 Performing Organization Address [facility]/State/[facility] [place] [address], [facility] * (ABNORMAL) Rapid Drug Panel, Urine (with Confirmation) with THC (04/01/2024 12:48 PM CDT) [facility] Amphetamines Screen Not Detected Not Detected 04/01/2024 4:52 PM CDT [facility] Barbiturates Screen Not Detected Not Detected 04/01/2024 4:52 PM CDT [facility] Benzodiazepines Screen Not Detected Not Detected 04/01/2024 4:52 PM CDT [facility] Buprenorphine Screen Not Detected Not Detected 04/01/2024 4:52 PM CDT [facility] Cocaine Metabolite Screen Not Detected Not Detected 04/01/2024 4:52 PM CDT [facility] Methadone Screen Not Detected Not Detected 04/01/2024 4:52 PM CDT [facility] Opiates Screen Not Detected Not Detected 04/01/2024 4:52 PM CDT [facility] Oxycodone Screen Not Detected Not Detected 04/01/2024 4:52 PM CDT [facility] Phencyclidine (PCP) Screen Not Detected Not Detected 04/01/2024 4:52 PM CDT [facility] THC (Marijuana) Metab Screen Presumptive Positive(A) Not Detected 04/01/2024 4:52 PM CDT [facility] Creatinine, Urine, Random 198 >20 mg/dL 04/01/2024 4:52 PM CDT [facility] Urine Non-blood Collection / Unknown 04/01/2024 12:48 PM CDT 04/01/2024 12:59 PM CDT [facility] - 04/01/2024 4:52 PM CDT The [...] or employment use. Gillian Dutton PA-C LAB_1 [facility] [address] [place] [address], [facility] documented in this encounter Visit Diagnoses Diagnosis ADHD, predominantly inattentive type (HRC) Attention deficit disorder with hyperactivity documented in this encounter Care Teams Gig Tender Relationship Specialty [place] [address] [place] [address] PCP - General Pediatric Medicine 01/21/16 documented as of this encounter
--- OUTSIDE RECORDS SUMMARY | 2024-06-12 23:01 | XMS_ITS | Encounter Summary ---
Author Organization [facility] Address [address], [place] [address] Care Team Providers Care Line Crew Supervisor Name Role Phone Mirtha Patel MD Primary Care Provider [phone] Encounter Details Date Type Department Care Team (Latest Contact Info) Description 06/05/2024 2:40 PM CDT Telemedicine [facility] Family Medicine [address] [place] [address] Gillian Dutton PA-C [address] [place] [address] ADHD, predominantly inattentive type (HRC) [...] Progress Notes * Gillian Dutton PA-C - 06/05/2024 2:40 PM CDT No chief complaint on file. This is a Telehealth visit with provider at home and patient at home. This visit is taking place inreal-time with Quyen. Ravindra Batista is a 23 y.o. old female who has a visit today to discuss ADHD concerns. Pt was taking Adderall 10 mg XR and 5 mg in afternoon but then began to get nausea and vomiting. States that she felt like she couldn't put any food in her stomach or keep food down but was hungry. States she stopped the medications and the symptoms went away. Feels when the short acting was added this contributed to problem. States she has had a hx of morning sickness, normally doesn't eat breakfast so is taking these on an empty stomach. Complete review of Systems negative other than [...] visit: ADHD, predominantly inattentive type (HRC) - methylphenidate 18 MG controlled release tablet; Take 1 Tablet (18 mg) by mouth daily. PLAN: We will try reshma jara to provide update via [employer] in 2 weeks. Gillian Dutton PA-C 06/05/2024, 2:49 PM documented in this encounter Plan of Treatment Not on file documented as of this encounter Visit Diagnoses Diagnosis ADHD, predominantly inattentive type (HRC)- Primary Attention deficit disorder with hyperactivity documented in this encounter Care Teams Line Crew Supervisor Relationship Specialty [place] [address] [place] [address] PCP - General Pediatric Medicine 01/21/16 documented as of this encounter
--- OUTSIDE RECORDS SUMMARY | 2024-06-12 23:01 | XMS_ITS | Encounter Summary ---
Author Organization [facility] Address [address], [place] [address] Care Team Providers Care Dice Dealer Name Role Phone Mirtha Patel MD Primary Care Provider [phone] Encounter Details Date Type Department Care Team (Late st Contact Info) Description 2002 [facility] Pediatrics [address] [place] [address] Jhoana Conn MD / JAUND NOS; NWBRN [...] in documented in this encounter Care Teams Dice Dealer Relationship Specialty [place] [address] [place] [address] PCP - General Pediatric Medicine 01/21/16 documented as of this encounter
--- OUTSIDE RECORDS SUMMARY | 2024-06-12 23:01 | XMS_ITS | Encounter Summary ---
Author Organization [facility] Address [address] [address] Care Team Providers Care Digital Program Manager Name Role Phone Mirtha Patel MD Primary Care Provider [phone] Reason for Visit * Reason Comments QUESTIONS, GENERAL Entered automaticall y based on patient selection in [employer]. Encounter Details Date Type Department Care Team (Late st Contact Info) Description 05/28/2024 2:20 PM CDT E-Visit [facility] Family Medicine [address] [place] [address] Gillian Dutton PA-C [address] [place] [address] Chief Comp: QUESTIONS, GENERAL Social History Tobacco Use Types Packs/Day Years [...] as of this encounter Nursing Notes * Maricarmen Guzman RN - 05/29/2024 10:15 AM CDT Clinician: Bill for E-Visit as appropriate Patient/director of medicare request: Experiencing side effects / symptoms from medication Specific Request: See e-visit, reporting vomiting with taking Adderall. Last visit: 04/17/24 documented in this encounter Plan of Treatment Not on file documented as of this encounter Visit Diagnoses Not on filedocumented in this encounter Care Teams Digital Program Manager Relationship Specialty [place] [address] [place] [address] PCP - General Pediatric Medicine 01/21/16 documented as of this encounter
--- OUTSIDE RECORDS SUMMARY | 2024-06-12 23:02 | XMS_ITS | Encounter Summary ---
Author Organization [facility] Address [address] [address] Care Team Providers Care Medicare Coordinator Name Role Phone Mirtha Patel MD Primary Care Provider [phone] Encounter Details Date Type Department Care Team (Late st Contact Info) Description 2002 [facility] Pediatrics [address] [place] [address] Jhoana Conn MD Children Social History Tobacco [...] * Jhoana Conn - 2002 12:00 AM MANAGER CREATIVE SERVICES [employer] documented in this encounter Plan of Treatment Not on file documented as of this encounter Visit Diagnoses Diagnosis Unspecified and jaundice Disorder of stomach function and feeding problems in documented in this encounter Care Teams Medicare Coordinator Relationship Specialty [place] [address] [place] [address] PCP - General Pediatric Medicine 01/21/16 documented as of this encounter
--- OUTSIDE RECORDS SUMMARY | 2024-06-12 23:02 | XMS_ITS | Clinical Summary ---
Author Organization [facility] [place], [place] [address] Care Team Providers Care Lighter Name Role Phone Pcp, No Primary Care [...] Comments Blood Pressure 104/59 09/04/2020 5:50 AM ENAMEL SPRAYER Pulse 93 09/04/2020 5:50 AM ENAMEL SPRAYER Temperature 36.8 ??C (98.2 ??F) 09/04/2020 4:35 AM CS T Respiratory Rate 21 09/04/2020 4:35 AM ENAMEL SPRAYER Oxygen Saturation 100% 09/04/2020 5:50 AM ENAMEL SPRAYER Inhaled Oxygen Concentration - - Weight 47.6 kg (105 lb) 09/04/2020 4:35 AM ENAMEL SPRAYER Height 162.6 cm (5' 4) 09/04/2020 4:35 AM ENAMEL SPRAYER Body Mass Index 18.02 09/04/2020 4:35 AM ENAMEL SPRAYER Plan of Treatment Health Maintenance Due Date [...] for age 21-65 2023 COVID-19 vaccine series (2023- season) 2024 07/28/2021, 10/20/2020 Influenza for age 9-49 04/07/2024 Meningococcal series for age 11-21 Aged Out No longer eligible b ased on patient's age to complete this topic Pneumococcal series for age 6-64 Aged Out No longer eligible b ased on patient's age to complete this topic Care Teams Lighter Relationship Specialty Start Date End Date Pcp, No . PCP - General 03/31/21
--- OUTSIDE RECORDS SUMMARY | 2024-06-12 23:02 | XMS_ITS | Encounter Summary ---
Author Organization [facility] Address [address] [place] [address] Care Team Providers Care Esthetician Spa Name Role Phone Mirtha Patel MD Primary Care Provider [phone] Encounter Details Date Type Department Care Team (Late st Contact Info) Description [address] [place] [address] Favio Nava MD [facility] [...] delivery documented in this encounter Care Teams Esthetician Spa Relationship Specialty [place] [address] [place] [address] PCP - General Pediatric Medicine 01/21/16 documented as of this encounter
--- OUTSIDE RECORDS SUMMARY | 2024-06-12 23:02 | XMS_ITS | Encounter Summary ---
[facility] Address [address] [place] [address] Care Team Providers Care Assistant Therapy Aide Name Role Phone Mirtha Patel MD Primary Care Provider [phone] Encounter Details Date Type Department Care Team (Late st Contact Info) Description [address] [place] [address] Favio Nava MD [facility] [...] delivery documented in this encounter Care Teams Assistant Therapy Aide Relationship Specialty [place] [id number] [place] [id number] PCP - General Pediatric Medicine 01/21/16 documented as of this encounter
[2024-06-12 23:07] LABS: Amorphous Sediment Urine Few; Bacteria Urine Few; RBC Urine 0-2 (0-2); Squamous Epithelial Cell Urine Few (None-Few)
[2024-06-12 23:44] VITALS: BP 110/68; PULSE 79; RESP 16; TEMP 36.9; O2SAT 100
== END 2024-06-12 23:47 | disposition home or self-care (01) ==
PROVIDERS: Emergency Provider Emergency Medicine
DX: N39.0 Urinary tract infection, site not specified (principal)
CPT/HCPCS: 81001; 81025; 87086; 99282; 99283